=== PATIENT | female | born 1995 | race Caucasian/White ===

== ENCOUNTER 2016-09-19 06:38 | Emergency (ER) | payer OTHER ==
[2016-09-19 06:46] VITALS: PULSE 88; RESP 18; O2SAT 97
[2016-09-19] MEDS ORDERED: METOCLOPRAMIDE 10 MG/2 ML VIAL IVP ONE (07:05)
[2016-09-19] MEDS ORDERED: NS 1,000 ML IV ONE (07:05)
[2016-09-19] MEDS ORDERED: ACETAMINOPHEN 500 MG TAB PO ONE (07:06)
--- NOTE | 2016-09-19 07:13 | EDPHY ---
H & P Stated Complaint: left side of nrck pain, stiffness, fever, dizzy Time Seen by Provider: 09/19/16 06:55 HPI/ROS: CHIEF COMPLAINT: Fevers, body ache, jaw pain HISTORY OF PRESENT ILLNESS: Patient is a healthy 21-year-old female who comes to the emergency department complaining of a fever that began early this morning up to 100 degrees also diffuse body aches. She has pain in the left side of her jaw and dental pain on her left upper posterior molar. No swelling or fracture. She has pain and tenderness to the left side of her neck with lymphadenopathy, no swelling. Mild headache. No vision changes. Mild nausea but no vomiting. No rash . No sore throat. 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 She has not taken any medications at home. REVIEW OF SYSTEMS: Constitutional: See HPI EENTM: See HPI Respiratory: denies: cough, shortness of breath Cardiac: denies: chest pain, irregular heart rate, lightheadedness, palpitations Gastrointestinal/Abdominal: See HPI Genitourinary: denies: dysuria, frequency, hematuria, pain Musculoskeletal: denies: joint pain, muscle pain Skin: denies: lesions, rash, jaundice, bruising Neurological: denies: headache, numbness, paresthesia, tingling, dizziness, weakness Hematologic/Lymphatic: denies: blood clots, easy bleeding, easy bruising Immunologic/allergic: denies: HIV/AIDS, transplant EXAM: GENERAL: Well-appearing, well-nourished and in no acute distress making jokes. HEAD: Atraumatic, normocephalic. EYES: Pupils equal round and reactive to light, extraocular movements intact, sclera anicteric, conjunctiva are normal. ENT: TMs normal, nares patent, oropharynx clear without exudates. Moist mucous membranes. Mild pain left upper molar, no swelling or fluctuance. No tenderness to percussion. NECK: Left anterior cervical lymphadenopathy, Normal range of motion, supple without lymphadenopathy or JVD. LUNGS: Breath sounds clear to auscultation bilaterally and equal. No wheezes rales or rhonchi. HEART: Regular rate and rhythm without murmurs, rubs or gallops. ABDOMEN: Soft, nontender, normoactive bowel sounds. No guarding, no rebound. No masses appreciated. BACK: No CVA tenderness, no spinal tenderness, step-offs or deformities EXTREMITIES: Normal range of motion, no pitting or edema. No clubbing or cyanosis. NEUROLOGICAL: Cranial nerves II through XII grossly intact. Normal speech, normal gait. 5/5 strength, normal movement in all extremities, normal sensation PSYCH: Normal mood, normal affect. SKIN: Warm, dry, normal turgor, no visible rashes or lesions. Source: Patient Exam Limitations: No limitations - Personal History LMP (Females 10-55): Now Current Tetanus Diphtheria and Acellular Pertussis (TDAP): Yes - Medical/Surgical History Hx Asthma: No Hx Chronic Respiratory Disease: No Hx Diabetes: No Hx Cardiac Disease: No Hx Renal Disease: No Hx Cirrhosis: No Hx Alcoholism: No Hx HIV/AIDS: No Hx Splenectomy or Spleen Trauma: No Other PMH: denies - Family History Significant Family History: No pertinent family hx - Social History Smoking Status: Never smoked Alcohol Use: Sober Drug Use: None Constitutional: Initial Vital Signs Temperature (C) 37.5 C 09/19/16 06:43 Heart Rate 88 09/19/16 06:43 Respiratory Rate 18 09/19/16 06:43 Blood Pressure 141/87 H 09/19/16 06:43 O2 Sat (%) 97 09/19/16 06:43 O2 Delivery Mode Room Air Allergies/Adverse Reactions: amoxicillin [Amoxicillin] Allergy (Verified 09/19/16 06:42) Home Medications: Medication Instructions Recorded Control 11/07/11 Medical Decision Making ED Course/Re-evaluation: 8:15 p.m. we discussed the patient's lab results. Her friend who is a nurse here was with her. They are relieved. We discussed treatment and care. She is eager to go home. She declines any more medication. I did offer the lumbar puncture initially but the patient declined. Differential Diagnosis: Partial list of the Differential diagnosis considered include but were not limited to; mononucleosis, dental infection and although unlikely based on the history and physical exam, I also considered strep throat, meningitis. I discussed these differential diagnoses and the plan with the patient as well as the usual and expected course. The patient understands that the diagnosis is provisional and that in medicine we are not always correct and that further workup is often warranted. Usual and customary warnings were given. All of the patient's questions were answered. The patient was instructed to return to the emergency department should the symptoms at all worsen or return, otherwise to followup with the physician as we discussed. - Data Points Laboratory Results: Laboratory Results 09/19/16 07:30 09/19/16 07:30 09/19/16 09/19/16 09/19/16 07:30 07:30 07:30 WBC 4.86 10^3/uL 10^3/uL (3.80-9.50) RBC 4.56 10^6/uL 10^6/uL (4.18-5.33) Hgb 13.9 g/dL g/dL (12.6-16.3) Hct 41.2 % % (38.0-47.0) MCV 90.4 fL fL (81.5-99.8) MCH 30.5 pg pg (27.9-34.1) MCHC 33.7 g/dL g/dL (32.4-36.7) RDW 12.6 % % (11.5-15.2) Plt Count 192 10^3/uL 10^3/uL (150-400) MPV 11.5 fL fL (8.7-11.7) Neut % (Auto) 61.7 % % (39.3-74.2) Lymph % (Auto) 27.4 % % (15.0-45.0) Charles % (Auto) 9.3 % % (4.5-13.0) Eos % (Auto) 0.8 % % (0.6-7.6) Baso % (Auto) 0.6 % % (0.3-1.7) Nucleat RBC Rel Count 0.0 % % (0.0-0.2) Absolute Neuts (auto) 3.00 10^3/uL 10^3/uL (1.70-6.50) Absolute Lymphs (auto) 1.33 10^3/uL 10^3/uL (1.00-3.00) Absolute Monos (auto) 0.45 10^3/uL 10^3/uL (0.30-0.80) Absolute Eos (auto) 0.04 10^3/uL 10^3/uL (0.03-0.40) Absolute Basos (auto) 0.03 10^3/uL 10^3/uL (0.02-0.10) Absolute Nucleated RBC 0.00 10^3/uL 10^3/uL (0-0.01) Immature Gran % 0.2 % % (0.0-1.1) Immature Gran # 0.01 10^3/uL 10^3/uL (0.00-0.10) Sodium 139 mEq/L mEq/L (134-144) Potassium 5.2 mEq/L mEq/L (3.5-5.2) Chloride 104 mEq/L mEq/L (97-110) Carbon Dioxide 22 mEq/l mEq/l (22-31) Anion Gap 13 mEq/L mEq/L (8-16) BUN 11 mg/dL mg/dL (7-23) Creatinine 0.8 mg/dL mg/dL (0.6-1.0) Estimated GFR > 60 Glucose 97 mg/dL mg/dL (70-100) Calcium 9.2 mg/dL mg/dL (8.5-10.4) Specimen Hemolysis 167 Monoscreen POSITIVE H (NEGATIVE) Medications Given: Discontinued Medications Acetaminophen (Tylenol) 1,000 mg PO EDNOW ONE Stop: 09/19/16 07:07 Last Admin: 09/19/16 07:13 Dose: 1,000 mg Sodium Chloride (Ns) 1,000 mls @ 0 mls/hr IV ONCE ONE; Wide Open PRN Reason: Protocol Stop: 09/19/16 07:06 Last Admin: 09/19/16 07:14 Dose: 1,000 mls Metoclopramide HCl (Reglan Injection) 10 mg IVP EDNOW ONE Stop: 09/19/16 07:06 Last Admin: 09/19/16 07:13 Dose: 10 mg Departure - Departure Disposition: Home, Routine, Self-Care Clinical Impression: Mononucleosis Condition: Fair Instructions: Mononucleosis (ED) Referrals: Amelia Lang MD [Primary Care Provider] - As per Instructions
[2016-09-19 07:38] LABS: % IMMATURE GRANULYOCYTES 0.2 % (0.0-1.1); ABSOLUTE IMMATURE GRANULOCYTES 0.01 10^3/uL (0.00-0.10); ADD DIFF? NO; ADD MORPH? NO; ADD SCAN? NO; ATYPICAL LYMPHOCYTE FLAG 80 (0-99); FRAGMENT RBC FLAG 0 (0-99); HEMATOCRIT 41.2 % (38.0-47.0); HEMOGLOBIN 13.9 g/dL (12.6-16.3); LEFT SHIFT FLG 0 (0-99); LIPEMIA HEMOLYSIS FLAG 80 (0-99); MEAN CELL HEMOGLOBIN 30.5 pg (27.9-34.1); MEAN CELL HEMOGLOBIN CONCENTR. 33.7 g/dL (32.4-36.7); MEAN CELL VOLUME 90.4 fL (81.5-99.8); MEAN PLATELET VOLUME 11.5 fL (8.7-11.7); PLATELET CLUMPS FLAG 10 (0-99); PLATELET COUNT 192 10^3/uL (150-400); RED BLOOD CELL COUNT 4.56 10^6/uL (4.18-5.33); RED CELL DISTRIBUTION WIDTH 12.6 % (11.5-15.2)
[2016-09-19 07:55] LABS: ANION GAP 13 mEq/L (8-16); CALCIUM 9.2 mg/dL (8.5-10.4); CARBON DIOXIDE 22 mEq/l (22-31); CHLORIDE 104 mEq/L (97-110); CREATININE 0.8 mg/dL (0.6-1.0); GLOMERULAR FILTRATION RATE > 60; GLUCOSE 97 mg/dL (70-100); POTASSIUM 5.2 mEq/L (3.5-5.2); SODIUM 139 mEq/L (134-144); SPECIMEN HEMOLYSIS 167
[2016-09-19 08:57] VITALS: BP 116/68; TEMP 98.6
== END 2016-09-19 08:54 | disposition home or self-care (01) ==
DX: B27.90 Infectious mononucleosis, unspecified without complication (principal); E86.9 Volume depletion, unspecified
CPT/HCPCS: 96374; J2765